=== PATIENT | female | born 1985 | race Caucasian/White ===

== ENCOUNTER 2019-08-29 17:46 | Emergency (ER) | payer OTHER ==
[2019-08-29 18:10] VITALS: RESP 16
--- NOTE | 2019-08-29 18:38 | XR ---
EXAMINATION TYPE: XR ribs LT w pa chest xray DATE OF EXAM: 08/29/2019 COMPARISON: NONE HISTORY: Pain TECHNIQUE: Single view of the chest 4 views of the ribs are submitted. FINDINGS: The lungs are clear. No Evidence for pneumothorax. No evidence for focal contusion. Medi astinal structures are midline. Evaluation of the ribs fails to demonstrate evidence for displaced r ib fracture or secondary sign of rib fracture. IMPRESSION: Negative study
[2019-08-29] MEDS ORDERED: ACETAMINOPHEN TAB 500 MG TAB PO STA (18:48)
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
--- NOTE | 2019-08-29 20:15 | USB ---
EXAMINATION TYPE: US breast complete LT DATE OF EXAM: 08/29/2019 COMPARISON: NONE CLINICAL HISTORY: Trauma, breast implant. Left breast scanned in entirety. Anechoic oblong structure seen at 1:00 measuring 1.0 x 0.6 x 1.0cm. Lesion is felt to reflect a cyst with internal echoes. This could be followed up with a routine ultra sound or mammogram. Implant scanned, no obvious signs of rupture, manage on a clinical basis. IMPRESSION: 1. Probably benign BI-RADS 3 Recommendation: 6 month follow-up ultrasound of the left 1:00 lesion.
[2019-08-29 20:37] VITALS: BP 120/71; PULSE 72; TEMP 98
== END 2019-08-29 20:39 | disposition home or self-care (01) ==
LOC: EC 17:46
DX: R07.89 Other chest pain (principal); R07.81 Pleurodynia; N64.9 Disorder of breast, unspecified; F17.200 Nicotine dependence, unspecified, uncomplicated; Z88.2 Allergy status to sulfonamides
CPT/HCPCS: 99285

== ENCOUNTER → 2020-01-20 | Outpatient (CLI) | payer OTHER ==
--- NOTE | 2020-01-20 09:59 | USB ---
Reason for exam: clinical finding. Indicated problem(s): lump or thickening in the right breast. Physical Findings: Nurse Summary: right breast lump found by PA 11/2019 (nurse chloe). US Breast Limited BILAT Technologist: Elvia Francois Right complete breast ultrasound includes all four quadrants, the retroareolar region and axilla. Finding demonstrates a 0.7 x 0.6 x 0.5cm cystic cluster at 12 o'clock, a 0.9 x 0.7 x 0.3cm hypoechoic lesion at 8 o'clock and a 0.7 x 0.6 x 0.3cm lesion at 11 o'clock. Left limited breast ultrasound including focal area of concern, retroareolar and axilla demonstrates a 0.6 x 0.5 x 0.3cm leion at 1 o'clock and a 0.9 x 1.0 x 0.6cm lesion at 1 o'clock. These results were verbally communicated with the patient and result sheet given to the patient on 01/20/20. ASSESSMENT: Suspicious, BI-RAD 4 RECOMMENDATION: Surgical consultation and ultrasound core biopsy of both breasts. (8 o'clock right breast, 1 o'clock left breast) Called office with mammographic findings and has scheduled an appointment for the patient for 02/18/20 at 10:[address] Leong. Biopsy scheduled for 02/04/20 at 12:00. PRELIMINARY REPORT CALLED AND FAXED TO DR. LEONG ON 01/20/20.
== END | disposition home or self-care (01) ==
LOC: RADUSWWP 07:47
PROVIDERS: ATTEND Family Medicine
DX: N63.10 Unspecified lump in the right breast, unspecified quadrant (principal)

== ENCOUNTER → 2020-02-04 | Day surgery (SDC) | payer OTHER ==
[2020-02-04 13:04] VITALS: RESP 16
[2020-02-04 15:55] VITALS: BP 122/78; PULSE 59; TEMP 98.3
--- NOTE | 2020-02-04 20:19 | USB ---
EXAMINATION TYPE: US biopsy breast VAD LT DATE OF EXAM: 02/04/2020 CLINICAL HISTORY: Breast lump N63. TECHNIQUE: Ultrasound guided vaccuum assisted core biopsy of left breast. COMPARISON: 08/29/2019 ultrasound FINDINGS: The ultrasound guided core biopsy procedure was explained to the patient. The risks, benefits, alternatives were discussed. An informed consent was then obtained. Specific discussion regarding implant rupture was performed. Given the high risk of the right breast biopsy, the patient deferred to short- term observation of the hypoechoic lesion. Left breast biopsy will be attempted at this time. Timeout was performed. The patient was placed in supine positioning for imaging and for the procedure. The overlying skin was prepped with betadine and sterilely draped in usual sterile fashion. Lidocaine 1% was used as anesthetic into the skin and deeper breast tissue up to area of concern in the breast. A small skin kelby was made with surgical scalpel. Under ultrasound guidance, a 12-gauge vacuum assisted biopsy device was used to obtain 2 core samples. Some collapse of the size of the lesion was observed. Additional sampling was not performed given the approaching proximity of the prosthesis. A biopsy clip was left in lesion at the biopsy site. Coil clip was placed. A solid core with additional tiny fragments was observed within the ultrasound biopsy device collection clip. Correlation with pathology is recommended. By patient relayed history, there may have been prior surgery at this site for fibroadenoma removal prior to the prosthesis placement. Good hemostasis was obtained with direct pressure. Discharge instructions were discussed with the patient. The patient will follow up with the referring physician for results. Postprocedure mammogram: The patient was transferred to mammography for physician ordered post procedure mammogram for clip placement verification. The clip is in the expected region of the biopsy. Suspicious mammographic lesion is not identified. No diagnostic right breast imaging was performed to evaluate for the right breast lesion. Right breast lesion is not clearly identified by mammography. A suspicious mammographic abnormality is not identified within the right breast. Follow-up with ultrasound in 3 months is recommended. The patient tolerated the procedure well without any immediate complication. The patient was discharged to home in stable condition. IMPRESSION: 1. Successful ultrasound guided biopsy left breast. 2. Right breast biopsy deferred at this time. Recommendations: 1. Final recommendations from left breast biopsy are pending pathology results. 2. In the absence of malignancy from pathology results, right breast ultrasound can be performed in 3 months. Pathology Results: Benign LEFT BREAST LESION, NEEDLE CORE BIOPSIES: Benign breast tissue with changes of fibrocystic spectrum disease. Recommendation Follow up ultrasound of both breasts in 6 months. Right breast 12:00, 8:00, 11:00, 6 month follow up ultrasound. 8:00 biopsy was deferred. Left 1:00 biopsy site, 6 month follow up ultrasound. HAIM
--- NOTE | 2020-02-04 20:19 | USB ---
EXAMINATION TYPE: US biopsy breast VAD LT DATE OF EXAM: 02/04/2020 CLINICAL HISTORY: Breast lump N63. TECHNIQUE: Ultrasound guided vaccuum assisted core biopsy of left breast. COMPARISON: 08/29/2019 ultrasound FINDINGS: The ultrasound guided core biopsy procedure was explained to the patient. The risks, benef its, alternatives were discussed. An informed consent was then obtained. Specific discussion regard ing implant rupture was performed. Given the high risk of the right breast biopsy, the patient deferr ed to short-term observation of the hypoechoic lesion. Left breast biopsy will be attempted at this t [facility]. Timeout was performed. The patient was placed in supine positioning for imaging and for the procedure. The overlying skin w as prepped with betadine and sterilely draped in usual sterile fashion. Lidocaine 1% was used as ane sthetic into the skin and deeper breast tissue up to area of concern in the breast. A small skin boubacar k was made with surgical scalpel. Under ultrasound guidance, a 12-gauge vacuum assisted biopsy device was used to obtain 2 core samples . Some collapse of the size of the lesion was observed. Additional sampling was not performed given the approaching proximity of the prosthesis. A biopsy clip was left in lesion at the biopsy site. Co il clip was placed. A solid core with additional tiny fragments was observed within the ultrasound bi opsy device collection clip. Correlation with pathology is recommended. By patient relayed history, t here may have been prior surgery at this site for fibroadenoma removal prior to the prosthesis placem ent. Good hemostasis was obtained with direct pressure. Discharge instructions were discussed with the pa gage. The patient will follow up with the referring physician for results. Postprocedure mammogram: The patient was transferred to mammography for physician ordered post proced ure mammogram for clip placement verification. The clip is in the expected region of the biopsy. Leanne picious mammographic lesion is not identified. No diagnostic right breast imaging was performed to ev aluate for the right breast lesion. Right breast lesion is not clearly identified by mammography. A s uspicious mammographic abnormality is not identified within the right breast. Follow-up with ultrasou nd in 3 months is recommended. The patient tolerated the procedure well without any immediate complication. The patient was dischar ged to home in stable condition. IMPRESSION: 1. Successful ultrasound guided biopsy left breast. 2. Right breast biopsy deferred at this time. Recommendations: 1. Final recommendations from left breast biopsy are pending pathology results. 2. In the absence of malignancy from pathology results, right breast ultrasound can be performed in 3 months.
--- NOTE | 2020-02-05 09:40 | MM ---
Reason for exam: additional evaluation requested from abnormal screening. History: US discontinued breast bx RT of the right breast, February 04, 2020. MG Diag Mamm Implant RT w CAD CC and MLO view(s) were taken of the right breast. The breast tissue is extremely dense which could obscure a lesion on mammography. Previous mammotome biopsy in the left breast. There is no discrete abnormality including area of concern right breast 8 o'clock position. These results were verbally communicated with the patient and result sheet given to the patient on 02/04/20. ASSESSMENT: Benign, BI-RAD 2 RECOMMENDATION: Ultrasound of the right breast in 3 months.
== END ==
LOC: RADUSWWP 12:43
PROVIDERS: ATTEND Family Medicine
DX: N60.12 Diffuse cystic mastopathy of left breast (principal); N63.10 Unspecified lump in the right breast, unspecified quadrant; Z88.2 Allergy status to sulfonamides; Z91.09 Other allergy status, other than to drugs and biological substances
CPT/HCPCS: 88305; 77065 ×2; 19083; 76641; A4648; J2001

== ENCOUNTER → 2020-11-24 | Outpatient (CLI) | payer OTHER ==
--- NOTE | 2020-11-29 13:14 | USB ---
Reason for exam: follow-up at short interval from prior study. History: Benign US biopsy breast VAD LT of the left breast, February 04, 2020. US discontinued breast bx RT of the right breast, February 04, 2020. Physical Findings: Nurse Summary: 0.7cm lump left breast 1 o'clock (nurse TM). US Breast BILAT Right complete breast ultrasound includes all four quadrants, the retroareolar region and axilla. Finding demonstrates a 12 x 3 x 12mm oval, hypoechoic lesion at 8 o'clock, prominent lobe, wider than tall, avascular, fairly stable from 01/20/20 and a 7 x 2 x 6mm oval, lobular, cystic lesion at 11 o'clock, wider than tall, stable. Left complete breast ultrasound includes all four quadrants, the retroareolar region and axilla. Finding demonstrates a 11 x 6 x 11mm oval, cystic lesion at 1 o'clock, stable from 01/20/20. These results were verbally communicated with the patient and result sheet given to the patient on 11/24/20. ASSESSMENT: Benign, BI-RAD 2 RECOMMENDATION: Clinical management of both breasts. Manage patient on a clinical basis.
== END | disposition home or self-care (01) ==
LOC: RADUSWWP 10:14
PROVIDERS: ATTEND Family Medicine
DX: N60.01 Solitary cyst of right breast (principal); N60.02 Solitary cyst of left breast